=== PATIENT | female | born 1995 | race American Indian/Alaskan Native ===

== ENCOUNTER 2021-01-16 21:15 | Emergency (ER) | payer OTHER | END 2021-01-16 22:00 | disposition left against medical advice (07) | LOC: TRG 21:15 → ED 21:15 → EDSTATUS 21:52 → ED 22:00 | DX: R10.30 Lower abdominal pain, unspecified (principal); Z53.21 Procedure and treatment not carried out due to patient leaving prior to being seen by health care provider ==

== ENCOUNTER 2021-01-16 21:44 | Emergency (ER) | payer SELFPAY | END 2021-01-16 21:50 | disposition left against medical advice (07) | LOC: ED 21:44 | DX: O26.892 Other specified pregnancy related conditions, second trimester (principal); R10.9 Unspecified abdominal pain; R10.2 Pelvic and perineal pain; Z3A.18 18 weeks gestation of pregnancy; Z53.21 Procedure and treatment not carried out due to patient leaving prior to being seen by health care provider ==

== ENCOUNTER 2021-03-01 16:43 | Outpatient (CLI) | payer OTHER ==
[2021-03-01 17:09] VITALS: BP 103/68
[2021-03-01] MEDS ORDERED: LACTATED RINGERS 500 ML IV ONE (17:16)
--- NOTE | 2021-03-01 19:44 | Ultrasound Report ---
ULTRASOUND OBSTETRIC LIMITED ULTRASOUND BIOPHYSICAL PROFILE INDICATION / CLINICAL INFORMATION: BPP. Evaluate for possible placental abruption and fluid volume Clinical Gestational Age (GA) in weeks, days: TECHNIQUE: Transabdominal. COMPARISON: None available. FINDINGS: BREATHING MOVEMENT = 2 GROSS BODY MOVEMENT = 2 TONE = 2 QUALITATIVE AMNIOTIC FLUID VOLUME = 2 TOTAL BIOPHYSICAL SCORE = 8/8 HEART RATE (beats per minute): 150 AMNIOTIC FLUID INDEX (cm) = 15.2 (normal = 7-24 cm) PRESENTATION: Cephalic. ADDITIONAL FINDINGS: Placenta is anteriorly located, grade 1. No evidence of abruption or other signi ficant placental abnormality. IMPRESSION: 1. Biophysical Score = 8/8 2.Single viable IUP in cephalic presentation. 3. Placenta is unremarkable in appearance, without suggestion of abruption. Signer Name: Angela Everett MD Signed: 03/01/2021 7:39 PM Workstation Name: [id number]
== END 2021-03-01 19:40 | disposition home or self-care (01) ==
LOC: TRG 16:43 → APU 16:45 → TRG 19:40
DX: O26.892 Other specified pregnancy related conditions, second trimester (principal); W19.XXXA Unspecified fall, initial encounter; Y93.89 Activity, other specified; Y92.89 Other specified places as the place of occurrence of the external cause; Y99.8 Other external cause status; Z3A.25 25 weeks gestation of pregnancy
CPT/HCPCS: 59025; 76815; 76819

== ENCOUNTER 2021-04-19 07:34 | Outpatient (CLI) | payer OTHER ==
[2021-04-19] MEDS ORDERED: LACTATED RINGERS 500 ML IV ONE (07:56)
[2021-04-19 11:18] VITALS: BP 90/52
--- NOTE | 2021-04-19 14:02 | Vascular Lab Report ---
DUPLEX DOPPLER UPPER EXTREMITY VENOUS, LEFT INDICATION / CLINICAL INFORMATION: swollen lt hand. TECHNIQUE: Duplex doppler imaging was performed through the veins of the left upper extremity using v enous compression and other maneuvers. COMPARISON: None available. FINDINGS: LEFT INTERNAL JUGULAR VEIN: Negative. LEFT SUBCLAVIAN VEIN: Negative. LEFT AXILLARY VEIN: Negative. LEFT BRACHIAL VEIN: Negative. LEFT FOREARM VEINS: Negative. LEFT BASILIC VEIN (SUPERFICIAL): Negative. ADDITIONAL FINDINGS: None. IMPRESSION: 1. No sonographic evidence for DVT. Signer Name: Alexey Samuels MD Signed: 04/19/2021 1:58 PM Workstation Name: [id number]
--- NOTE | 2021-04-19 14:03 | Vascular Lab Report ---
DUPLEX DOPPLER LOWER EXTREMITY VEINS, BILATERAL INDICATION / CLINICAL INFORMATION: swollen feet and legs. TECHNIQUE: Duplex doppler imaging was performed through the veins of both lower extremities using nestor ous compression and other maneuvers. COMPARISON: None available. FINDINGS: RIGHT COMMON FEMORAL VEIN: Negative. RIGHT FEMORAL VEIN: Negative. RIGHT POPLITEAL VEIN: Negative. RIGHT CALF VEINS: Negative. LEFT COMMON FEMORAL VEIN: Negative. LEFT FEMORAL VEIN: Negative. LEFT POPLITEAL VEIN: Negative. LEFT CALF VEINS: Negative. ADDITIONAL FINDINGS: None. IMPRESSION: 1. No sonographic evidence for DVT in either lower extremity. Signer Name: Alexey Samuels MD Signed: 04/19/2021 1:58 PM Workstation Name: [id number]
== END 2021-04-19 14:12 | disposition home or self-care (01) ==
LOC: TRG 07:34 → APU 07:35 → TRG 14:12
PROVIDERS: ATTEND Obstetrics & Gynecology
DX: O26.893 Other specified pregnancy related conditions, third trimester (principal); R22.42 Localized swelling, mass and lump, left lower limb; R22.41 Localized swelling, mass and lump, right lower limb; Z3A.32 32 weeks gestation of pregnancy
CPT/HCPCS: 59025; 93970

== ENCOUNTER 2021-05-09 18:23 | Outpatient (CLI) | payer OTHER ==
[2021-05-09] MEDS ORDERED: LACTATED RINGERS 1,000 ML IV ONE (19:10)
[2021-05-09 19:55] LABS: Hematocrit 33.3 % (30.3-42.9); Hemoglobin 10.3 gm/dl (10.1-14.3); Mean Corpuscular HGB Conc 31 % (30-34); Mean Corpuscular Volume 82 fl (79-97); Platelet Count 259 K/mm3 (140-440); Red Blood Count 4.08 M/mm3 (3.65-5.03); Red Cell Distribution Width 15.7 % (13.2-15.2)
[2021-05-09 20:06] LABS: Bacteria,Urine 1+ /HPF (Negative); Bilirubin,Urine NEG (Negative); Blood,Urine SM (Negative); Color,Urine Straw (Yellow); Mucus,Urine FEW /HPF; Protein,Urine <15 mg/dL mg/dL (Negative); Urobilinogen,Urine < 2.0 mg/dL (<2.0)
[2021-05-09 20:17] LABS: Alanine Aminotransferase 8 units/L (7-56); Uric Acid 4.9 mg/dL (3.5-7.6)
[2021-05-09 20:31] VITALS: BP 118/75
== END 2021-05-09 20:57 | disposition home or self-care (01) ==
LOC: TRG 18:23 → APU 18:25 → TRG 20:57
PROVIDERS: ATTEND Obstetrics & Gynecology
DX: O13.3 Gestational [pregnancy-induced] hypertension without significant proteinuria, third trimester (principal); O26.893 Other specified pregnancy related conditions, third trimester; R10.2 Pelvic and perineal pain; Z3A.35 35 weeks gestation of pregnancy
CPT/HCPCS: 36415; 59025; 81001; 82565; 83615; 84450; 84460; 84550; 85027; 96360; J7120; J3490

== ENCOUNTER 2021-06-04 10:25 | Outpatient (CLI) | payer OTHER ==
[2021-06-04 13:14] LABS: Hematocrit 34.4 % (30.3-42.9); Hemoglobin 10.8 gm/dl (10.1-14.3); Mean Corpuscular HGB Conc 32 % (30-34); Mean Corpuscular Volume 82 fl (79-97); Platelet Count 270 K/mm3 (140-440); Red Blood Count 4.22 M/mm3 (3.65-5.03); Red Cell Distribution Width 16.5 % (13.2-15.2)
--- NOTE | 2021-06-04 13:25 | Ultrasound Report ---
ULTRASOUND OBSTETRIC LIMITED ULTRASOUND BIOPHYSICAL PROFILE INDICATION / CLINICAL INFORMATION: BPP; VICENTE. Clinical Gestational Age (GA) in weeks, days: 39, 1 TECHNIQUE: Transabdominal. COMPARISON: 05/30/2021 FINDINGS: BREATHING MOVEMENT = 2 GROSS BODY MOVEMENT = 2 TONE = 2 QUALITATIVE AMNIOTIC FLUID VOLUME = 2 TOTAL BIOPHYSICAL SCORE = 8/8 HEART RATE (beats per minute): 137 AMNIOTIC FLUID INDEX (cm) = 12.8 (normal = 7-24 cm) PRESENTATION: Cephalic. ADDITIONAL FINDINGS: None. IMPRESSION: 1. Biophysical Score = 8/8 2. heart rate is 137 bpm. Amniotic fluid index is 12.8 cm. Signer Name: Alexey Samuels MD Signed: 06/04/2021 1:21 PM Workstation Name: [email or web address]
[2021-06-04 13:43] LABS: Bilirubin,Urine NEG (Negative); Blood,Urine NEG (Negative); Color,Urine Straw (Yellow); Protein,Urine <15 mg/dL mg/dL (Negative); Urobilinogen,Urine < 2.0 mg/dL (<2.0)
[2021-06-04 14:03] LABS: Alanine Aminotransferase 11 units/L (7-56); Uric Acid 5.6 mg/dL (3.5-7.6)
[2021-06-04] MEDS ORDERED: LACTATED RINGERS 1,000 ML IV ONE (14:10)
[2021-06-04 14:57] VITALS: BP 135/86
== END 2021-06-04 14:47 | disposition home or self-care (01) ==
LOC: TRG 10:25 → APU 10:26 → TRG 14:47
PROVIDERS: ATTEND Obstetrics & Gynecology
DX: O62.9 Abnormality of forces of labor, unspecified (principal); O13.3 Gestational [pregnancy-induced] hypertension without significant proteinuria, third trimester; O99.013 Anemia complicating pregnancy, third trimester; D64.9 Anemia, unspecified; Z3A.39 39 weeks gestation of pregnancy
CPT/HCPCS: 36415; 59025; 76815; 76819; 81001; 82565; 83615; 84450; 84460; 84550; 85027; 96360; 96361; J7120

== ENCOUNTER 2021-06-07 03:32 | Inpatient (IN) | payer OTHER ==
[2021-06-07] MEDS ORDERED: OXYTOCIN 10 UNIT/1 ML INJ IM PRN (04:29)
[2021-06-07] MEDS ORDERED: MINERAL OIL 30 ML ORAL LIQD PO PRN (04:29)
[2021-06-07] MEDS ORDERED: CARBOPROST TROMETHAMINE 250 MCG/1 ML INJ IM PRN (04:29)
[2021-06-07] MEDS ORDERED: ePHEDrine SULFATE 50 MG/1 ML INJ IV PRN ×2 (04:29→11:07)
[2021-06-07] MEDS ORDERED: LIDOCAINE (2%) 20 MG/1 ML VIAL 20 ML MDV INFILTRATI ONE ×2 (04:29→22:05)
[2021-06-07] MEDS ORDERED: miSOPROStol 200 MCG TAB PR PRN (04:29)
[2021-06-07] MEDS ORDERED: fentaNYL 100 MCG/2 ML INJ IV PRN (04:29)
[2021-06-07] MEDS ORDERED: ONDANSETRON 4 MG/2 ML INJ IV PRN (04:29)
[2021-06-07] MEDS ORDERED: LOPERAMIDE 2 MG CAP PO PRN (04:29)
[2021-06-07] MEDS ORDERED: ACETAMINOPHEN 325 MG TAB PO PRN (04:29)
[2021-06-07] MEDS ORDERED: METHYLERGONOVINE MALEATE 0.2 MG/ML VIAL IM PRN (04:29)
[2021-06-07] MEDS ORDERED: TERBUTALINE 1 MG/1 ML INJ SUB-Q PRN (04:29)
[2021-06-07] MEDS ORDERED: BUTORPHANOL 2 MG/1 ML INJ IV PRN (04:29)
[2021-06-07] MEDS ORDERED: LACTATED RINGERS 1,000 ML IV SCH (04:30)
[2021-06-07] MEDS ORDERED: OXYTOCIN DRIP 30 UNITS/500 ML BAG IV SCH ×2 (05:00)
[2021-06-07 06:43] LABS: Hemoglobin 10.2 gm/dl (10.1-14.3); Mean Corpuscular HGB Conc 31 % (30-34); Mean Corpuscular Volume 82 fl (79-97); Platelet Count 281 K/mm3 (140-440); Red Blood Count 4.03 M/mm3 (3.65-5.03)
[2021-06-07 06:55] LABS: Alanine Aminotransferase 9 units/L (7-56)
--- NOTE | 2021-06-07 07:17 | History and Physical Report ---
History of Present Illness Date of examination: 06/07/21 Date of admission: 06/07/21 04:29 Chief complaint: LOF History of present illness: at 39.2wks by EDC 06/12/21 and care at [facility]. Pt gave h/o LOF earlier this morning. Denies vag bleed or headache. Pt admits to movement and ocassional ctx. records show Rh positive, HIV, HepBsAg and RPR all neg and rubella immune. Treated for chlamydia in 2015 and neg this preg. 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 Dilatation and curettage done in 2017. Past History Past Medical History: no pertinent history Past Surgical History: D&C (2017) BUSINESS PROCESS REPRESENTATIVE History: herpes Social history: no significant social history - Obstetrical History Expected Date of Delivery: 06/12/21 Actual Gestation: 39 Week(s) 2 Day(s) : 4 Spontaneous Abortions: 3 Number of Living Children: 0 Medications and Allergies Allergies Allergy/AdvReac Type Severity Reaction Status Date / Time ibuprofen Allergy Hives Verified 06/04/21 11:07 Home Medications Medication Instructions Recorded Confirmed Last Taken Type Vit-Fe Fumar-FA [ 1 tab PO DAILY 03/01/21 03/01/21 02/28/21 History Vitamin] Active Meds: Active Medications Acetaminophen (Acetaminophen 325 Mg Tab) 650 mg PO Q4H PRN PRN Reason: Pain, Mild (1-3) Butorphanol Tartrate (Butorphanol 2 Mg/1 Ml Inj) 1 mg IV Q2H PRN PRN Reason: Pain, Moderate(4-6) LABOR PAIN Carboprost Tromethamine (Carboprost Tromethamine 250 Mcg/1 Ml Inj) 250 mcg IM ONCE PRN PRN Reason: Uterine Bleeding Ephedrine Sulfate (Ephedrine Sulfate 50 Mg/1 Ml Inj) 10 mg IV Q2M PRN PRN Reason: Hypotension Fentanyl (Fentanyl 100 Mcg/2 Ml Inj) 100 mcg IV Q2H PRN PRN Reason: Pain,Severe (7-10) LABOR PAIN Oxytocin/Sodium Chloride (Pitocin/Ns 30 Unit/500ml) 30 units in 500 mls @ 2 mls/hr IV TITR JOZEF; Protocol Last Admin: 06/07/21 05:42 Dose: 2 mls/hr, 2 mls/hr Documented by: Lactated Ringer's (Lactated Ringers) 1,000 mls @ 125 mls/hr IV DIRECT JOZEF Last Admin: 06/07/21 05:44 Dose: 125 mls/hr Documented by: Oxytocin/Sodium Chloride (Pitocin/Ns 30 Unit/500ml) 30 units in 500 mls @ 40 mls/hr IV TITR JOZEF; Protocol Loperamide HCl (Loperamide 2 Mg Cap) 2 mg PO ONCE PRN PRN Reason: give with Hemabate Methylergonovine Maleate (Methylergonovine Maleate 0.2 Mg/Ml Vial) 0.2 mg IM ONCE PRN PRN Reason: Uterine Bleeding Mineral Oil (Mineral Oil 30 Ml Oral Liqd) 30 ml PO QHS PRN PRN Reason: Constipation Misoprostol (Misoprostol 200 Mcg Tab) 800 mcg HI ONCE PRN PRN Reason: Uterine Bleeding Ondansetron HCl (Ondansetron 4 Mg/2 Ml Inj) 4 mg IV Q8H PRN PRN Reason: Nausea And Vomiting Oxytocin (Oxytocin 10 Unit/1 Ml Inj) 10 unit IM ONCE PRN PRN Reason: Uterine Bleeding Terbutaline Sulfate (Terbutaline 1 Mg/1 Ml Inj) 0.25 mg SUB-Q ONCE PRN PRN Reason: Hyperstimulation/Hypertonicity Review of Systems All systems: negative (LOF) - Vital Signs Vital signs: Vital Signs Pulse BP Pulse Ox 75 135/94 99 06/07/21 03:51 06/07/21 03:51 06/07/21 03:51 Temp Pulse Resp BP Pulse Ox 98.2 F 80 16 121/89 99 06/07/21 04:53 06/07/21 07:02 06/07/21 04:53 06/07/21 04:53 06/07/21 07:02 - Physical Exam Breasts: Positive: deferred Cardiovascular: Regular rate Lungs: Positive: Normal air movement Abdomen: Positive: soft Genitourinary (Female): Positive: normal external genitalia Vulva: both: normal (no lesions) - Obstetrical FHR: category 1 Uterine Contraction Monitor Mode: External Cervical Dilatation: 4 (3 in triage) Cervical Effacement Percentage: 70 station: -1 Uterine Contraction Pattern: Irregular Results Result Diagrams: 06/07/21 05:20 06/07/21 05:20 Abnormal lab results 06/07/21 06/07/21 Range/Units 05:20 05:20 MCH 25 L (28-32) pg RDW 17.0 H (13.2-15.2) % Lactate Dehydrogenase 205 H (91-180) units/L All other labs normal. Assessment and Plan PROM at term with asymptomatic anemia, no active herpetic lesions 1. Admit to labor and delivery, grossly ruptured 2. U/S at bedside with vertex presentation 3. Augment with pitocin 4. May have IV pain med or epidural when desired 5. Expect
[2021-06-07] MEDS ORDERED: valACYclovir 500 MG TAB PO SCH (10:00)
[2021-06-07] MEDS ORDERED: NALOXONE 2 MG/2 ML INJ IV PRN (11:07)
--- NOTE | 2021-06-07 11:07 | Anesthesia Consultation ---
Anesthesia Consult and Med Hx Date of service: 06/07/21 - Airway Anesthetic Teeth Evaluation: Good ROM Head & Neck: Adequate Mental/Hyoid Distance: Adequate Mallampati Class: Class II Intubation Access Assessment: Probably Good - Pre-Operative Health Status ASA Pre-Surgery Classification: ASA2 Proposed Anesthetic Plan: Epidural, Spinal - Pulmonary Hx Asthma: No COPD: No Hx Pneumonia: No - Cardiovascular System Hx Hypertension: Yes (current ) - Central Nervous System Hx Seizures: No Hx Psychiatric Problems: No - Endocrine Hx Renal Disease: No Hx End Stage Renal Disease: No Hx Hypothyroidism: No Hx Hyperthyroidism: No - Hematic Hx Anemia: Yes Hx Sickle Cell Disease: No - Other Systems Hx Alcohol Use: (not since ) Hx Obesity: Yes (BMI 34.9)
--- NOTE | 2021-06-07 11:18 | Progress Note ---
Labor Epidural - Labor Epidural Start Time: 10:45 Stop Time: 11:00 Performed by:: NUHA MACK Procedure: Spinal epidural for labor Patient interviewed in the room, labs are reviewed, consent signed. In sitting position with aseptic technique G25 epidural needle introduced to L3-L4 space,, water technique until loss of resistance. Spinal G25 needle inserted through epidural needle passed cerebrospinal membrane. Clear CSF. Injected 10 mg of Precedex inthrathacally. Test dose with 3 ml 1.5% Lidocaine with epi - negative. Sterile dressing. No complications
[2021-06-07] MEDS: fentaNYL-BUPIV 2 MCG/ML-0.125% 200 MCG/100 ML BAG EPIDURAL SCH ×2 (11:41→20:03)
[2021-06-07 12:19] LABS: Bilirubin,Urine NEG (Negative); Blood,Urine NEG (Negative); Color,Urine Colorless (Yellow); Protein,Urine <15 mg/dL mg/dL (Negative); RBC,Urine < 1.0 /HPF (0.0-6.0); Urobilinogen,Urine < 2.0 mg/dL (<2.0); WBC,Urine < 1.0 /HPF (0.0-6.0)
[2021-06-07] MEDS ORDERED: AMPICILLIN/NS 2 GM/100 ML 2 GM/100 ML BAG IV ONE (13:43)
[2021-06-07] MEDS ORDERED: AMPICILLIN/NS 1 GM/50 ML 1 GM/50 ML BAG IV SCH (18:00)
[2021-06-07] MEDS ORDERED: GENTAMICIN 100 MG in SODIUM CHLORIDE 0.9% 100 ML IV SCH (20:02)
[2021-06-07] MEDS ORDERED: ACETAMINOPHEN 500 MG TAB PO ONE (20:02)
[2021-06-07] MEDS ORDERED: AMPICILLIN/NS 2 GM/100 ML 2 GM/100 ML BAG IV SCH (20:03)
--- NOTE | 2021-06-07 20:11 | Event Note ---
Date: 06/07/21 Patient is now 6 cm/100 percent effaced/-1 station. Fetus is in OP position. IUPC placed to better evaluate contractions. Patient has been receiving Pitocin for augmentation of labor. Patient is resting in left lateral position with peanut ball. Patient had a few variable FHR decelerations while in right lateral position, thus patient was positioned on left side. Normal baseline FHR and moderate variability. Patient has been receiving IV ampicillin. Gentamicin ordered also now due to temp. 100.1 orally. Oral Tylenol ordered. Will consult with re: this patient. Will give amnioinfusion for variable FHR decelerations.
[2021-06-07] MEDS ORDERED: SODIUM CHLORIDE 0.9% 1000 ML 1,000 ML VG SCH (20:15)
[2021-06-07] MEDS ORDERED: BUPIVACAINE/PF (0.25%) 2.5 MG/ML 10 ML VIAL INFILTRATI ONE (20:57)
[2021-06-08] MEDS ORDERED: AMPICILLIN/NS 1 GM/50 ML 1 GM/50 ML BAG IV SCH (01:00)
[2021-06-08] MEDS ORDERED: NalbUPHINE 10 MG/1 ML INJ IV ONE (02:17)
[2021-06-08] MEDS ORDERED: LIDOCAINE (2%) 20 MG/1 ML VIAL 20 ML MDV INFILTRATI ONE (02:35)
[2021-06-08] MEDS ORDERED: MAGNESIUM HYDROXIDE (MOM) ORAL LIQD UDC PO PRN (03:03)
[2021-06-08] MEDS ORDERED: diphenhydrAMINE 25 MG CAP PO PRN (03:03)
[2021-06-08] MEDS ORDERED: BENZOCAINE/MENTHOL 20/0.5% TOP SPRAY 56 GM TP PRN (03:03)
[2021-06-08] MEDS ORDERED: LANOLIN/ZINC/DIMETHICONE (LANSINOH) 7 GM TP PRN (03:03)
[2021-06-08] MEDS ORDERED: WITCH HAZEL/ GLYCERIN PAD TP PRN (03:03)
--- NOTE | 2021-06-08 03:21 | Procedure Note ---
OB Delivery Note - Delivery Date of Delivery: 06/08/21 Surgeon: NATTY PETER Estimated blood loss: other (250 cc) - Vaginal Delivery presentation: vertex Delivery position: OP Intrapartum events: none Delivery induction: none Delivery augmentation: pitocin Delivery monitor: external FHT, external uterine, internal uterine Route of delivery: Delivery placenta: spontaneous Delivery cord: 3 umbilical vessels Delivery laceration: 2nd degree Delivery repair: vicryl Anesthesia: local, epidural Delivery comments: Spontaneous vaginal delivery at 02:01 of liveborn female infant weighing 6 lb. 10 oz. over 2nd degree midline episiotomy with apgars of 6/8. SROM 24 hours prior to delivery; temp of 100.1 during labor. Patient received IV Ampicillin and Gentamicin and Pitocin augmentation of labor. Baby delivered ROP and had loose nuchal cord times 1 which was manually reduced prior to delivery of shoulders. was atraumatic; baby was placed skin to skin with mom immediately after delivery. Spontaneous cry and respirations. Baby was bulb suctioned and dried and stimulated. 3 vessel cord double clamped and cut and baby taken to radiant warmer for further suctioning. Cord blood obtained. Spontaneous delivery of intact placenta and membranes at 02:07. Pitocin to IV fluids after delivery of placenta. Fundus firm and midline at 1 FB above umbilicus. EBL 250 cc. 2nd degree midline episiotomy repaired with 2-0 vicryl in usual sterile fashion. Lidocaine given for local anesthesia. No other lacerations noted. Sponge count correct. Vaginal sweep negative. Mother and baby stable in birthing room.
[2021-06-08] MEDS: AMPICILLIN/NS 2 GM/100 ML 2 GM/100 ML BAG IV SCH ×2 (05:00→12:25)
[2021-06-08] MEDS: DOCUSATE SODIUM 100 MG CAP PO SCH ×3 (05:13→22:42)
[2021-06-08] MEDS ORDERED: BICITRA ORAL LIQD 30ML PO ONE (06:27)
[2021-06-08] MEDS ORDERED: LACTATED RINGERS 1,000 ML IV SCH (06:30)
--- NOTE | 2021-06-08 06:31 | Event Note ---
Date: 06/08/21 Patient reports chest pain, mild. Heart RRR without murmur. EKG ordered. Bicitra ordered. Consulted with Dr. Chawla re: this patient.
--- NOTE | 2021-06-08 08:20 | XRay Report ---
CHEST 2 VIEWS INDICATION / CLINICAL INFORMATION: chest pain. COMPARISON: 02/15/2019 FINDINGS: SUPPORT DEVICES: None. HEART / MEDIASTINUM: No significant abnormality. LUNGS / PLEURA: No significant pulmonary or pleural abnormality. No pneumothorax. ADDITIONAL FINDINGS: No significant additional findings. IMPRESSION: 1. No acute findings. Signer Name: Brett Cerda DO Signed: 06/08/2021 8:16 AM Workstation Name: [id number]
[2021-06-08] MEDS: HYDROcodone/ACETAMINOPHEN 5-325 MG TAB PO PRN ×4 (08:36→22:42)
--- NOTE | 2021-06-08 10:00 | Post Anesthesia Evaluation ---
- Post Anesthesia Evaluation Patient Participated: Yes Airway Patent: Yes Stable Respiratory Function: Yes Nausea/Vomiting: No Temp > 96.8F: Yes Pain Manageable: Yes Adequeate Hydration: Yes Anesthesia Complications: No Block Receding Appropriately: Yes Patient on Ventilator: No
[2021-06-08 21:27] LABS: Hematocrit 28.2 % (30.3-42.9); Hemoglobin 8.7 gm/dl (10.1-14.3)
[2021-06-09] MEDS: HYDROcodone/ACETAMINOPHEN 5-325 MG TAB PO PRN ×2 (08:24→20:58)
[2021-06-09] MEDS: DOCUSATE SODIUM 100 MG CAP PO SCH ×2 (10:49→23:02)
--- NOTE | 2021-06-09 12:58 | Progress Note ---
Assessment and Plan A: S/P Asymptomatic anemia P: Continue routine pp orders D/C home tomm if stable Subjective - Subjective Date of service: 06/09/21 Principal diagnosis: s/p Patient reports: appetite normal, voiding normally, pain well controlled, flatus, ambulating normally : doing well, bottle feeding (Pt denies any complaints) Objective - Vital Signs Latest vital signs: Vital Signs Temp Pulse Resp BP Pulse Ox Pulse Ox 06/09/21 08:15 97 06/09/21 07:34 98.0 F 81 18 110/79 99 06/09/21 00:20 97.9 F 86 20 100/68 99 06/08/21 19:55 97 06/08/21 16:49 98.4 F 77 18 125/82 98 Intake and Output 06/08/21 06/09/21 06/09/21 22:59 06:59 14:59 Intake Total 480 120 Balance 480 120 Intake: Oral 480 120 Other: Total, Intake Amount 120 120 # Voids Void 1 1 - Exam Breasts: Present: normal Abdomen: Present: normal appearance, soft, normal bowel sounds Vulva: both: normal Uterus: Present: normal, firm, fundal height below umbilicus Extremities: Present: normal Incision: Present: normal, dry, intact - Labs Labs: Abnormal lab results 06/08/21 Range/Units 21:10 Hgb 8.7 L (10.1-14.3) gm/dl Hct 28.2 L (30.3-42.9) %
--- NOTE | 2021-06-09 17:33 | Electrocardiograph Report ---
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
[2021-06-09] MEDS: FERROUS SULFATE 325 MG TAB PO SCH (23:02)
[2021-06-10] MEDS: HYDROcodone/ACETAMINOPHEN 5-325 MG TAB PO PRN (04:28)
[2021-06-10] MEDS: FERROUS SULFATE 325 MG TAB PO SCH (12:24)
[2021-06-10] MEDS: DOCUSATE SODIUM 100 MG CAP PO SCH (12:24)
[2021-06-10 17:47] VITALS: BP 127/87
--- NOTE | 2021-06-10 17:52 | Progress Note ---
Assessment and Plan PPD#2 with asymptomatic anemia 1. Discharge home on iron supplement 2. Pt to follow up with [facility] for care. Subjective Date of service: 06/10/21 Principal diagnosis: PPD#1 Interval history: pt has no complaints and wants to go home. Pt is bottle and breast feeding. Vag bleed less than a period. Voiding without difficulty. Objective - Constitutional Vitals: Vital Signs - 12hr 06/10/21 06/10/21 06/10/21 07:59 08:00 16:28 Temperature 98.5 F 99.1 F Pulse Rate 70 90 Respiratory 18 18 Rate Blood Pressure 135/91 127/87 O2 Sat by Pulse 99 97 Oximetry O2 Sat by Pulse 100 Oximetry [ Bilateral] General appearance: Present: no acute distress - Respiratory Respiratory effort: normal - Cardiovascular Rhythm: regular Extremities: No edema - Gastrointestinal General gastrointestinal: Present: soft, non-tender - Genitourinary Female genitourinary: other (Fundus firm, 2cm below umbilicus and non-tender; lochia small) - Integumentary Integumentary: warm, dry - Neurologic Neurologic: moves all extremities - Psychiatric Psychiatric: cooperative - Labs CBC & Chem 7: 06/08/21 21:10 06/07/21 05:20 Medications & Allergies - Medications Allergies/Adverse Reactions: Allergies ibuprofen Allergy (Verified 06/04/21 11:07) Hives Home Medications: Home Medications Medication Instructions Recorded Confirmed Last Taken Type Vit-Fe Fumar-FA [ 1 tab PO DAILY 03/01/21 06/07/21 02/28/21 History Vitamin] Active Medications: Generic Name Dose Route Start Last Admin Trade Name Haydenq PRN Reason Stop Dose Admin Hydrocodone Bitart/Acetaminophen 2 each 06/08/21 03:03 06/10/21 04:28 Hydrocodone/Acetaminophen 5-325 Mg Tab PO 1 each Q6H PRN Administration Pain, Moderate (4-6) Benzocaine/Menthol 1 spray 06/08/21 03:03 06/08/21 10:37 Benzocaine/Menthol 20/0.5% Top [place] 56 Gm TP 1 spray PRN PRN Administration Episiotomy Pain Diphenhydramine HCl 25 mg 06/08/21 03:03 Diphenhydramine 25 Mg Cap PO Q6H PRN Itching Docusate Sodium 100 mg 06/08/21 04:00 06/10/21 12:24 Docusate Sodium 100 Mg Cap PO 100 mg BID JOZEF Administration Ferrous Sulfate 325 mg 06/09/21 14:00 06/10/21 12:24 Ferrous Sulfate 325 Mg Tab PO 325 mg BID JOZEF Administration Lactated Ringer's 1,000 mls @ 125 mls/hr 06/08/21 06:30 06/08/21 07:00 Lactated Ringers IV 125 mls/hr DIRECT JOZEF Administration Magnesium Hydroxide 30 ml 06/08/21 03:03 Magnesium Hydroxide (Mom) Oral Liqd Udc PO HS PRN Constipation Multi-Ingredient Ointment 1 applic 06/08/21 03:03 06/08/21 10:37 Lanolin/Zinc/Dimethicone (Lansinoh) 7 Gm TP 1 applic PRN PRN Administration Sore Nipples Sodium Chloride 10 ml 06/08/21 04:00 Sodium Chloride 0.9% 10 Ml Flush Syringe IV PRN PRN LINE FLUSH Witch Aida/Glycerin 1 each 06/08/21 03:03 Witch Aida/ Glycerin Pad TP PRN PRN Hemorrhoid/cleansing/soothing
--- NOTE | 2021-06-10 19:53 | Discharge Summary ---
Providers - Providers Date of Admission: 06/07/21 04:29 Date of discharge: 06/10/21 Attending physician: NEREIDA ARNOLD Primary care physician: NEREIDA ARNOLD Hospitalization Reason for admission: active labor, IUP at term Delivery: Episiotomy: midline Laceration: 2nd degree complications: none Discharge diagnosis: IUP at term delivered baby: female Hospital course: Term pt admitted in labor, given pitocin augmentation and pt had uncomplicated vag delivery. course with asymptomatic anemia. pt left prior to getting iron and vitamin C script therefore same sent to pharm listed in patient's records. Condition at discharge: Good Disposition: HOME / SELF CARE / HOMELESS - Discharge Diagnoses (1) (spontaneous vaginal delivery) Status: Acute Plan - Discharge Medications Prescriptions: Ferrous Sulfate [Ferrous Sulfate 324 MG] 324 mg PO BID 30 Days #60 tablet. Ascorbic Acid [Vitamin C] 500 mg PO BID 30 Days #60 capsule.er - Provider Discharge Summary Activity: no sex for 6 weeks Diet: routine Additional instructions: [] Smoking cessation referral if applicable(refer to patient education folder for contact #) [] Refer to [facility]'s [facility] Booklet Call your doctor immediately for: * Fever > 100.5 * Heavy vaginal bleeding ( >1 pad per hour) * Severe persistent headache * Shortness of breath * Reddened, hot, painful area to leg or breast * Drainage or odor from incision. * Keep incision clean and dry at all times and follow doctor's instructions regarding bathing/showering - Follow up plan Follow up: NEREIDA ARNOLD MD [Primary Care Provider] - 6 Weeks (make appt with your clinic at [facility] for post check) Forms: [facility] Discharge Summary
== END 2021-06-10 18:30 | disposition home or self-care (01) | DRG 806 ==
LOC: TRG 03:32 → APU 03:33 → TRG 04:29 → LD 04:29 → OB 06-08 04:39
PROVIDERS: ADMIT Obstetrics & Gynecology; ATTEND Obstetrics & Gynecology
PROC: 10E0XZZ Delivery of Products of Conception, External Approach (ICD-10-PCS; principal; 2021-06-08)
PROC: 0KQM0ZZ Repair Perineum Muscle, Open Approach (ICD-10-PCS; 2021-06-08)
PROC: 10H07YZ Insertion of Other Device into Products of Conception, Via Natural or Artificial Opening (ICD-10-PCS; 2021-06-08)
PROC: 3E0R3BZ Introduction of Anesthetic Agent into Spinal Canal, Percutaneous Approach (ICD-10-PCS; 2021-06-08)
PROC: 00HU33Z Insertion of Infusion Device into Spinal Canal, Percutaneous Approach (ICD-10-PCS; 2021-06-08)
PROC: 0W8NXZZ Division of Female Perineum, External Approach (ICD-10-PCS; 2021-06-08)
DX: O76 Abnormality in fetal heart rate and rhythm complicating labor and delivery (principal); O98.32 Other infections with a predominantly sexual mode of transmission complicating childbirth; Z37.0 Single live birth; Z3A.39 39 weeks gestation of pregnancy; Z20.822 Contact with and (suspected) exposure to COVID-19; A60.00 Herpesviral infection of urogenital system, unspecified; O99.02 Anemia complicating childbirth; O70.1 Second degree perineal laceration during delivery; Z88.8 Allergy status to other drugs, medicaments and biological substances
CPT/HCPCS: 36415; 59025; 71046; 81001; 82565; 83615; 84450; 84460; 84550; 85014; 85018; 85027; 86592; 86850; 86900; 86901; 93005; 99211; G0378; J3490; G0463; J0290; J1580; J2300; J2405; J2590; J7120; U0003